=== PATIENT | male | born 1970 | race Hispanic/Latino ===

== ENCOUNTER 2025-04-30 19:00 | Emergency (ER) | payer OTHER ==
[~2025-04-30] VITALS: Ht 162.6 cm; Wt 70.3 kg
[2025-04-30 19:02] VITALS: BP 122/85; PULSE 100; RESP 20; TEMP 97.8
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
--- NOTE | 2025-04-30 21:21 | HMCIMG ---
EXAM: CR Pelvis and Right Hip, 3 views. CLINICAL HISTORY: Pain. Injury. COMPARISON: None provided. FINDINGS: No acute fracture or aggressive appearing osseous lesion. Mild osteoarthritis in the bilateral hip, sacroiliac, and symphysis pubis joints. Mild enthesopathy around the bilateral hips. IMPRESSION: No acute bony abnormality is evident. Mild degenerative changes. /[place]
--- NOTE | 2025-04-30 21:25 | HMCIMG ---
EXAM: CR Right Hand, 3 views. CLINICAL HISTORY: Pain. Injury. COMPARISON: None provided. FINDINGS: Mildly fracture around the distal aspect of the second finger distal phalanx. Mild osteoarthritis. Diffuse soft tissue swelling is evident. The remaining bones are within normal limits. IMPRESSION: Mildly fracture around the distal aspect of the second finger distal phalanx. Degenerative osseous changes. /[place]
--- NOTE | 2025-04-30 21:26 | HMCIMG ---
EXAM: CR Right Shoulder, 2 views CLINICAL HISTORY: Pain. Injury. COMPARISON: None provided. FINDINGS: No acute fracture or aggressive appearing osseous lesion. No joint dislocation. Mild osteoarthritis in the acromioclavicular and glenohumeral joints. The soft tissues are unremarkable. IMPRESSION: No acute bony abnormality is evident. Mild osteoarthritis. /[place]
[2025-04-30] MEDS ORDERED: IBUP-1492 PO (22:09)
== END 2025-04-30 22:17 | disposition home or self-care (01) ==
LOC: EEVIPCON 19:00 → EDH 19:00
DX: S62.630A Displaced fracture of distal phalanx of right index finger, initial encounter for closed fracture (principal); M19.011 Primary osteoarthritis, right shoulder; M16.11 Unilateral primary osteoarthritis, right hip; Y04.8XXA Assault by other bodily force, initial encounter; Y93.89 Activity, other specified; Y92.89 Other specified places as the place of occurrence of the external cause; Y99.8 Other external cause status
CPT/HCPCS: 99284; 73130; 73502; 73030; 96372; J1885; J0696